=== PATIENT | female | born 2000 | race Hispanic/Latino ===

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

== ENCOUNTER 2019-01-23 11:15 | Inpatient (IN) | payer SELFPAY ==
[~2019-01-23] VITALS: Ht 160 cm; Wt 70.8 kg
[2019-01-23 12:23] LABS: HEMATOCRIT 36.5 % (37.0-47.0); HEMOGLOBIN 12.1 g/dl (12.0-16.0); IMMATURE GRANULOCYTES 0.8 % (0.0-5.0); MEAN CORPUSCULAR HGB 29.2 pG CALC (26.0-32.0); MEAN CORPUSCULAR HGB CONC 33.2 g/L CALC (32.0-36.0); NEUT# 23.97 thou/uL (2.00-7.15); RED BLOOD COUNT 4.15 mill/uL (4.20-5.60)
[2019-01-23 12:51] LABS: ALBUMIN 4.4 g/dL (3.2-5.0); POTASSIUM 3.9 mmol/l (3.5-5.1)
[2019-01-23 12:58] LABS: BILIRUBIN, TOTAL 1.2 mg/dL (0.0-1.4); CREATININE 2.1 mg/dL (0.5-1.0); TOTAL PROTEIN 9.1 g/dL (6.3-8.2)
[2019-01-23 14:00] LABS: URINE BILIRUBIN - DIPSTICK SMALL (NEGATIVE); URINE BLOOD DIPSTICK LARGE (NEGATIVE); URINE COLOR DK. YELLOW; URINE GLUCOSE - DIPSTICK NEGATIVE (NEGATIVE); URINE KETONE NEGATIVE (NEGATIVE); URINE LEUK ESTERASE MODERATE (NEGATIVE); URINE NITRITE - DIPSTICK NEGATIVE (Negative); URINE PROTEIN - DIPSTICK 100 mg/dL (NEG-TRACE); URINE SPECIFIC GRAVITY 1.025
[2019-01-23 14:01] LABS: URINE EPITHELIAL CELLS MANY EPI/hpf (0-FEW); URINE RBC 50-100 RBC/hpf (0-5)
[2019-01-23 14:02] LABS: URINE BACTERIA MANY hpf; URINE WBC 50-100 WBC/hpf (0-5)
[2019-01-23 15:25] VITALS: BP 136/86
[2019-01-23 17:15] VITALS: BP 108/62
[2019-01-23 19:05] VITALS: BP 86/52
[2019-01-23 20:45] VITALS: BP 102/60
[2019-01-24 05:11] VITALS: BP 98/71
[2019-01-24 05:37] LABS: HEMATOCRIT 30.6 % (37.0-47.0); IMMATURE GRANULOCYTES 1.4 % (0.0-5.0); MEAN CELL VOLUME 87.2 fL CALC (80.0-100.0); MEAN CORPUSCULAR HGB 28.8 pG CALC (26.0-32.0); NEUT# 14.05 thou/uL (2.00-7.15); RED BLOOD COUNT 3.51 mill/uL (4.20-5.60); RED CELL DISTRI WIDTH 12.6 % (11.5-15.5)
[2019-01-24 05:39] LABS: ANION GAP 13 (6-22 (CALC)); BUN 20 mg/dL (8-21); BUN/CREATININE RATIO 16 (12-20 (CALC)); CARBON DIOXIDE 19 mmol/l (22-30); CHLORIDE 107 mmol/l (95-108); CREATININE 1.3 mg/dL (0.5-1.0); GFR 53 ML/MIN (>=60 (CALC)); GFR FOR AFR.AMER. > 60 ML/MIN (>=60 (CALC)); MAGNESIUM 1.4 mg/dL (1.6-2.3); POTASSIUM 4.2 mmol/l (3.5-5.1); SODIUM 134 mmol/l (137-146)
[2019-01-24 05:40] LABS: HEMOGLOBIN 10.1 g/dl (12.0-16.0)
[2019-01-24 16:25] VITALS: BP 109/67
[2019-01-24 19:19] VITALS: BP 113/71
[2019-01-25 03:40] VITALS: BP 117/79
[2019-01-25 05:04] LABS: HEMATOCRIT 28.3 % (37.0-47.0); HEMOGLOBIN 9.2 g/dl (12.0-16.0); IMMATURE GRANULOCYTES 0.8 % (0.0-5.0); MEAN CELL VOLUME 88.4 fL CALC (80.0-100.0); MEAN CORPUSCULAR HGB 28.8 pG CALC (26.0-32.0); MEAN CORPUSCULAR HGB CONC 32.5 g/L CALC (32.0-36.0); NEUT# 9.76 thou/uL (2.00-7.15); RED BLOOD COUNT 3.2 mill/uL (4.20-5.60); RED CELL DISTRI WIDTH 12.4 % (11.5-15.5)
[2019-01-25 05:23] LABS: ANION GAP 11 (6-22 (CALC)); BUN 19 mg/dL (8-21); BUN/CREATININE RATIO 19 (12-20 (CALC)); CARBON DIOXIDE 17 mmol/l (22-30); CHLORIDE 110 mmol/l (95-108); GFR > 60 ML/MIN (>=60 (CALC)); GFR FOR AFR.AMER. > 60 ML/MIN (>=60 (CALC)); POTASSIUM 4.1 mmol/l (3.5-5.1); SODIUM 134 mmol/l (137-146)
[2019-01-25 08:00] VITALS: BP 106/89
[2019-01-25 15:30] VITALS: BP 125/81
[2019-01-25 19:11] VITALS: BP 133/88
[2019-01-26 04:15] VITALS: BP 134/96
[2019-01-26 05:32] LABS: HEMATOCRIT 32.7 % (37.0-47.0); HEMOGLOBIN 10.5 g/dl (12.0-16.0); IMMATURE GRANULOCYTES 0.7 % (0.0-5.0); MEAN CELL VOLUME 88.9 fL CALC (80.0-100.0); MEAN CORPUSCULAR HGB 28.5 pG CALC (26.0-32.0); MEAN CORPUSCULAR HGB CONC 32.1 g/L CALC (32.0-36.0); NEUT# 11.52 thou/uL (2.00-7.15); RED BLOOD COUNT 3.68 mill/uL (4.20-5.60); RED CELL DISTRI WIDTH 12.6 % (11.5-15.5)
[2019-01-26 05:35] LABS: ANION GAP 11 (6-22 (CALC)); BUN 18 mg/dL (8-21); BUN/CREATININE RATIO 16 (12-20 (CALC)); CARBON DIOXIDE 17 mmol/l (22-30); CHLORIDE 112 mmol/l (95-108); CREATININE 1.1 mg/dL (0.5-1.0); GFR > 60 ML/MIN (>=60 (CALC)); GFR FOR AFR.AMER. > 60 ML/MIN (>=60 (CALC)); POTASSIUM 3.7 mmol/l (3.5-5.1); SODIUM 136 mmol/l (137-146)
[2019-01-26 07:24] VITALS: BP 115/80
[2019-01-26 10:15] LABS: URINE BILIRUBIN - DIPSTICK SMALL (NEGATIVE); URINE BLOOD DIPSTICK LARGE (NEGATIVE); URINE GLUCOSE - DIPSTICK NEGATIVE (NEGATIVE); URINE KETONE TRACE mg/dL (NEGATIVE); URINE LEUK ESTERASE MODERATE (Negative); URINE NITRITE - DIPSTICK POSITIVE (Negative); URINE PH 6.5 (4.5-8.0); URINE PROTEIN - DIPSTICK >=300 mg/dL (NEG-TRACE); URINE UROBILINOGEN - DIPSTICK 0.2 E.U./dL (0.2)
[2019-01-26 10:16] LABS: URINE CLARITY BLOODY; URINE COLOR BROWN; URINE RBC 50-100 RBC/hpf (0-5)
[2019-01-26 10:17] LABS: URINE BACTERIA MANY hpf; URINE EPITHELIAL CELLS MODERATE EPI/hpf (0-FEW); URINE MUCUS MANY hpf (NONE-FEW); URINE WBC 20-50 WBC/hpf (0-5)
[2019-01-26 15:13] VITALS: BP 141/98
[2019-01-26 19:07] VITALS: BP 122/81
[2019-01-27 04:00] VITALS: BP 128/80
[2019-01-27 05:53] LABS: HEMATOCRIT 28.8 % (37.0-47.0); HEMOGLOBIN 9.5 g/dl (12.0-16.0); MEAN CELL VOLUME 87.5 fL CALC (80.0-100.0); MEAN CORPUSCULAR HGB 28.9 pG CALC (26.0-32.0); NEUT# 8.38 thou/uL (2.00-7.15); RED BLOOD COUNT 3.29 mill/uL (4.20-5.60); RED CELL DISTRI WIDTH 12.7 % (11.5-15.5)
[2019-01-27 06:16] LABS: ANION GAP 9 (6-22 (CALC)); BUN 17 mg/dL (8-21); BUN/CREATININE RATIO 15 (12-20 (CALC)); CARBON DIOXIDE 16 mmol/l (22-30); CHLORIDE 115 mmol/l (95-108); CREATININE 1.1 mg/dL (0.5-1.0); GFR > 60 ML/MIN (>=60 (CALC)); GFR FOR AFR.AMER. > 60 ML/MIN (>=60 (CALC)); POTASSIUM 3.5 mmol/l (3.5-5.1); SODIUM 136 mmol/l (137-146)
[2019-01-27 07:29] VITALS: BP 129/93
[2019-01-27 11:03] VITALS: BP 139/97
[2019-01-27 15:04] VITALS: BP 133/95
== END 2019-01-27 18:14 | disposition left against medical advice (07) | DRG 872 ==
LOC: ED 11:15 → ED-I 13:37 → ED 13:53 → MS2 13:54
PROVIDERS: Nurse Practitioner Family; ADMIT Internal Medicine; ATTEND Internal Medicine
DX: A41.9 Sepsis, unspecified organism (principal); N10 Acute pyelonephritis; N17.9 Acute kidney failure, unspecified; N39.0 Urinary tract infection, site not specified; B96.20 Unspecified Escherichia coli [E. coli] as the cause of diseases classified elsewhere; E86.0 Dehydration; E83.42 Hypomagnesemia
CPT/HCPCS: J0692; J1650; J3370; J3475; Q3014; Q9967

== ENCOUNTER 2019-04-13 | Emergency (ER) | payer BC ==
[2019-04-13 11:08] LABS: HEMATOCRIT 34.2 % (37.0-47.0); HEMOGLOBIN 11.4 g/dl (12.0-16.0); IMMATURE GRANULOCYTES 0.3 % (0.0-5.0); MEAN CELL VOLUME 87.5 fL CALC (80.0-100.0); MEAN CORPUSCULAR HGB 29.2 pG CALC (26.0-32.0); MEAN CORPUSCULAR HGB CONC 33.3 g/L CALC (32.0-36.0); NEUT# 6.32 thou/uL (2.00-7.15); RED BLOOD COUNT 3.91 mill/uL (4.20-5.60); RED CELL DISTRI WIDTH 13.5 % (11.5-15.5)
[2019-04-13 11:27] LABS: BUN 9 mg/dL (8-21); BUN/CREATININE RATIO 15 (12-20 (CALC)); CHLORIDE 106 mmol/l (95-108); CREATININE 0.6 mg/dL (0.5-1.0); GFR > 60 ML/MIN (>=60 (CALC)); GFR FOR AFR.AMER. > 60 ML/MIN (>=60 (CALC)); POTASSIUM 4.1 mmol/l (3.5-5.1); SODIUM 138 mmol/l (137-146)
[2019-04-13 11:28] LABS: ANION GAP 14 (6-22 (CALC)); CARBON DIOXIDE 22 mmol/l (22-30)
[2019-04-13 11:44] LABS: BETA-HCG, QUANT(RESULT NUMBER) 422 mIU/mL
== END 2019-04-13 13:35 | DRG 779 ==
PROVIDERS: Family Medicine
DX: O03.4 Incomplete spontaneous abortion without complication (principal)

== ENCOUNTER 2021-11-29 02:32 | Emergency (ER) | payer SELFPAY ==
[~2021-11-29] VITALS: Ht 160 cm; Wt 95.0 kg
[2021-11-29] VITALS (9 sets, daily range): BP systolic 99–135; BP diastolic 62–88
[2021-11-29 03:17] LABS: HEMATOCRIT 35.9 % (37.0-47.0); HEMOGLOBIN 12.2 g/dl (12.0-16.0); IMMATURE GRANULOCYTES 0.2 % (0.0-5.0); MEAN CELL VOLUME 84.7 fL CALC (80.0-100.0); MEAN CORPUSCULAR HGB 28.8 pG CALC (26.0-32.0); NEUT# 10.29 thou/uL (2.00-7.15); RED BLOOD COUNT 4.24 mill/uL (4.20-5.60); RED CELL DISTRI WIDTH 12.6 % (11.5-15.5)
[2021-11-29 03:38] LABS: ALBUMIN 4.4 g/dL (3.2-5.0); ALKALINE PHOSPHATASE 92 u/l (38-126); ANION GAP 15 (6-22 (CALC)); BILIRUBIN, TOTAL 0.4 mg/dL (0.0-1.4); BUN 12 mg/dL (7-17); BUN/CREATININE RATIO 15 (12-20 (CALC)); CARBON DIOXIDE 24 mmol/l (22-30); CHLORIDE 103 mmol/l (95-108); CREATININE 0.8 mg/dL (0.5-1.0); ETHYL ALCOHOL 0 mg/dl (0-30); GFR FOR AFR.AMER. > 60 ML/MIN (>=60 (CALC)); GFR OTHER RACES > 60 ML/MIN (>=60 (CALC)); MAGNESIUM 2.2 mg/dL (1.6-2.3); POTASSIUM 3.5 mmol/l (3.5-5.1); SGOT/AST 28 u/l (14-36); SODIUM 138 mmol/l (137-146); TOTAL PROTEIN 8.1 g/dL (6.3-8.2)
[2021-11-29 05:39] LABS: URINE BILIRUBIN - DIPSTICK NEGATIVE (NEGATIVE); URINE BLOOD DIPSTICK MODERATE (NEGATIVE); URINE COLOR YELLOW; URINE GLUCOSE - DIPSTICK NEGATIVE (NEGATIVE); URINE KETONE NEGATIVE (NEGATIVE); URINE LEUK ESTERASE TRACE (NEGATIVE); URINE PROTEIN - DIPSTICK NEGATIVE (NEG-TRACE); URINE SPECIFIC GRAVITY >=1.030; URINE UROBILINOGEN - DIPSTICK 0.2 E.U./dL (0.2)
[2021-11-29 05:40] LABS: URINE NITRITE - DIPSTICK NEGATIVE (Negative)
[2021-11-29 05:46] LABS: URINE SQUAMOUS EPITHELIAL CELL FEW EPI/hpf (0-FEW)
[2021-11-29 05:47] LABS: URINE BACTERIA FEW hpf; URINE MUCUS FEW hpf (NONE-FEW)
== END 2021-11-29 06:07 | disposition home or self-care (01) | DRG 918 ==
LOC: ED 02:32
PROVIDERS: Family Medicine
DX: T40.711A Poisoning by cannabis, accidental (unintentional), initial encounter (principal); R53.1 Weakness; H55.00 Unspecified nystagmus; D72.829 Elevated white blood cell count, unspecified

== ENCOUNTER 2022-09-07 13:08 | Emergency (ER) | payer SELFPAY ==
[~2022-09-07] VITALS: Ht 160 cm; Wt 95.5 kg
[2022-09-07 13:15] VITALS: BP 140/89
[2022-09-07 14:12] LABS: BASO% 0.1 % (0-3); EOS% 0.7 % (0-8); HEMATOCRIT 37.8 % (37.0-47.0); HEMOGLOBIN 12.3 g/dl (12.0-16.0); IMMATURE GRANULOCYTES 0.1 % (0.0-5.0); LYMPH% 10.6 % (15-41); MEAN CELL VOLUME 89.8 fL CALC (80.0-100.0); MEAN CORPUSCULAR HGB 29.2 pG CALC (26.0-32.0); MEAN CORPUSCULAR HGB CONC 32.5 g/dL CAL (32.0-36.0); MONO% 5.8 % (2-13); NEUT# 13.33 thou/uL (2.00-7.15); NEUT% 82.7 % (42-76); RED BLOOD COUNT 4.21 mill/uL (4.20-5.60); RED CELL DISTRI WIDTH 12.5 % (11.5-15.5)
[2022-09-07 14:13] LABS: URINE BILIRUBIN - DIPSTICK NEGATIVE (NEGATIVE); URINE BLOOD DIPSTICK MODERATE (NEGATIVE); URINE COLOR YELLOW; URINE GLUCOSE - DIPSTICK NEGATIVE (NEGATIVE); URINE KETONE NEGATIVE (NEGATIVE); URINE LEUK ESTERASE NEGATIVE (NEGATIVE); URINE NITRITE - DIPSTICK NEGATIVE (Negative); URINE PROTEIN - DIPSTICK 30 mg/dL (NEG-TRACE); URINE SPECIFIC GRAVITY 1.015; URINE UROBILINOGEN - DIPSTICK 0.2 E.U./dL (0.2)
[2022-09-07 14:22] LABS: URINE SQUAMOUS EPITHELIAL CELL FEW EPI/hpf (0-FEW); URINE WBC 0-2 WBC/hpf (0-5)
[2022-09-07 14:31] LABS: ALBUMIN 4.7 g/dL (3.2-5.0); ALKALINE PHOSPHATASE 92 u/l (38-126); ANION GAP 17 (6-22 (CALC)); BUN 10 mg/dL (7-17); BUN/CREATININE RATIO 13 (12-20 (CALC)); CARBON DIOXIDE 22 mmol/l (22-30); CHLORIDE 105 mmol/l (95-108); CREATININE 0.8 mg/dL (0.5-1.0); GFR FOR AFR.AMER. > 60 ML/MIN (>=60 (CALC)); GFR OTHER RACES > 60 ML/MIN (>=60 (CALC)); POTASSIUM 3.8 mmol/l (3.5-5.1); SODIUM 140 mmol/l (137-146); TOTAL PROTEIN 8.5 g/dL (6.3-8.2)
[2022-09-07 14:44] LABS: BILIRUBIN, TOTAL 0.6 mg/dL (0.02-1.3); SGOT/AST 89 u/l (14-36)
[2022-09-07] MEDS ORDERED: IBUPROFEN600 MG PO (15:57)
[2022-09-07] MEDS ORDERED: DOXYCYCL HYC100 M4 PO (15:57)
[2022-09-07] MEDS ORDERED: TAMSULOSIN0.4 MG PO (15:57)
[2022-09-07] MEDS ORDERED: ONDANSETRON4 MG PO (16:01)
[2022-09-07 16:17] VITALS: BP 140/89
== END 2022-09-07 16:20 | disposition home or self-care (01) | DRG 694 ==
LOC: ED 13:08
PROVIDERS: Family Medicine
DX: N20.0 Calculus of kidney (principal); N83.202 Unspecified ovarian cyst, left side

== ENCOUNTER 2024-02-25 00:06 | Emergency (ER) | payer SELFPAY ==
[~2024-02-25] VITALS: Ht 160 cm; Wt 74.3 kg
[~2024-02-25 00:06] MED LIST changes: +DOXYCYCL HYC100 M4 PO; +IBUPROFEN600 MG PO; +ONDANSETRON4 MG PO; +TAMSULOSIN0.4 MG PO
[2024-02-25 00:41] VITALS: BP 124/78
== END 2024-02-25 00:52 | disposition home or self-care (01) | DRG 833 ==
LOC: ED 00:06
DX: O98.811 Other maternal infectious and parasitic diseases complicating pregnancy, first trimester (principal); B35.4 Tinea corporis; Z3A.01 Less than 8 weeks gestation of pregnancy